=== PATIENT | male | born 1980 | race American Indian/Alaskan Native ===

== ENCOUNTER 2018-12-30 04:05 | Emergency (ER) | payer SELFPAY ==
--- NOTE | 2018-12-30 05:54 | XRay Report ---
CHEST 1 VIEW INDICATION / CLINICAL INFORMATION: Chest Pain. COMPARISON: None available. FINDINGS: SUPPORT DEVICES: None. HEART / MEDIASTINUM: No significant abnormality. LUNGS / PLEURA: No significant pulmonary or pleural abnormality. No pneumothorax. ADDITIONAL FINDINGS: No significant additional findings. IMPRESSION: 1. No acute findings. Signer Name: Maya Souza MD Signed: 12/30/2018 5:49 AM Workstation Name: [id number]
[2018-12-30 05:57] LABS: Basophils % (Auto) 0.5 % (0.0-1.8); Eosinophils # (Auto) 0.4 K/mm3 (0.0-0.4); Eosinophils % (Auto) 4.6 % (0.0-4.3); Hematocrit 46.1 % (35.5-45.6); Hemoglobin 15.4 gm/dl (11.8-15.2); Lymphocytes # (Auto) 3.5 K/mm3 (1.2-5.4); Lymphocytes % (Auto) 40.7 % (13.4-35.0); Mean Corpuscular HGB Conc 34 % (32-34); Mean Corpuscular Volume 88 fl (84-94); Monocytes % (Auto) 11.1 % (0.0-7.3); Platelet Count 240 K/mm3 (140-440); Red Blood Count 5.24 M/mm3 (3.65-5.03); Red Cell Distribution Width 13.2 % (13.2-15.2)
[2018-12-30 06:19] LABS: BUN/Creatinine Ratio 24; Blood Urea Nitrogen 19 mg/dL (9-20); Calcium 9.3 mg/dL (8.4-10.2); Hemolysis Index 26
--- NOTE | 2018-12-30 06:21 | Emergency Department Report ---
ED Chest Pain HPI - General Chief Complaint: Chest Pain Stated Complaint: CHEST PAIN Time Seen by Provider: 12/30/18 06:03 Source: patient Mode of arrival: Ambulatory Limitations: No Limitations - History of Present Illness Initial Comments: 38-year-old male presents to the emergency department with a complaint of some intermittent midsternal chest pain that has been going on for the past month. He also has some mid to left-sided back pain but does not feel that the pain actually radiates to this area. He denies any shortness of breath, fever, naus ea, lower extremity swelling, vomiting or diaphoresis. The patient is a history of [id number] diabetes. He denies any tobacco or illicit drug use. Denies any family history of early cardiac disease or events. He has not taken anything for her symptoms prior to presentation today. - Related Data Home Medications Medication Instructions Recorded Confirmed Last Taken Aspirin [Adult Aspirin] 81 mg PO DAILY 12/30/18 12/30/18 12/29/18 AtorvaSTATin [Lipitor] 20 mg PO QHS 12/30/18 12/30/18 12/29/18 Cholecalciferol Vit D3 [Vitamin D3 1,000 unit PO QDAY 12/30/18 12/30/18 12/29/18 1,000 UNIT TAB] Lisinopril [Zestril] 5 mg PO QDAY 12/30/18 12/30/18 12/29/18 Metformin HCl [metFORMIN] 1,000 mg PO DAILY 12/30/18 12/30/18 12/29/18 Vardenafil HCl [Levitra] 20 mg PO DAILY PRN 12/30/18 12/30/18 12/16/18 Allergies Allergy/AdvReac Type Severity Reaction Status Date / Time No Known Allergies Allergy Unverified 12/30/18 05:30 Heart Score - HEART Score History: Slightly suspicious EKG: Non-specific Age: < 45 Risk factors: 1-2 risk factors Troponin: < normal limit HEART Score: 2 - Critical Actions Critical Actions: 0-3 pts:0.9-1.7%risk of adverse cardiac event.Candidate for discharge ED Review of Systems ROS: Stated complaint: CHEST PAIN Other details as noted in HPI Comment: All other systems reviewed and negative Constitutional: denies: chills, fever Respiratory: denies: cough, shortness of breath Cardiovascular: chest pain. denies: palpitations, edema Gastrointestinal: denies: abdominal pain, vomiting Genitourinary: denies: dysuria, discharge Musculoskeletal: denies: back pain, arthralgia Skin: denies: rash, lesions Neurological: denies: headache, weakness ED Past Medical Hx - Past Medical History Previous Medical History?: Yes Hx Hypertension: Yes Hx Diabetes: Yes Additional medical history: high cholesterol - Surgical History Past Surgical History?: No - Social History Smoking Status: Former Smoker Substance Use Type: None - Medications Home Medications: Home Medications Medication Instructions Recorded Confirmed Last Taken Type Aspirin [Adult Aspirin] 81 mg PO DAILY 12/30/18 12/30/18 12/29/18 History AtorvaSTATin [Lipitor] 20 mg PO QHS 12/30/18 12/30/18 12/29/18 History Cholecalciferol Vit D3 [Vitamin D3 1,000 unit PO QDAY 12/30/18 12/30/18 12/29/18 History 1,000 UNIT TAB] Lisinopril [Zestril] 5 mg PO QDAY 12/30/18 12/30/18 12/29/18 History Metformin HCl [metFORMIN] 1,000 mg PO DAILY 12/30/18 12/30/18 12/29/18 History Vardenafil HCl [Levitra] 20 mg PO DAILY PRN 12/30/18 12/30/18 12/16/18 History ED Physical Exam - General Limitations: No Limitations - Other Other exam information: GENERAL: The patient is well-developed well-nourished. HENT: Normocephalic. Atraumatic. Patient has moist mucous membranes. EYES: Extraocular motions are intact. NECK: Supple. Trachea is midline. CHEST/LUNGS: Clear to auscultation. There is no respiratory distress noted. HEART/CARDIOVASCULAR: Regular. There is no tachycardia. There is no murmur. ABDOMEN: Abdomen is soft, nontender. Patient has normal bowel sounds. There is no abdominal distention. SKIN: Skin is warm and dry. NEURO: The patient is awake, alert, and oriented. The patient is cooperative. The patient has no focal neurologic deficits. Normal speech. MUSCULOSKELETAL: There is no tenderness or deformity. There is no evidence of acute injury. ED Course Vital Signs 12/30/18 12/30/18 12/30/18 04:16 06:15 06:19 Temperature 97.4 F L Pulse Rate 82 69 Respiratory 20 17 18 Rate Blood Pressure 141/85 120/74 Blood Pressure [Left] O2 Sat by Pulse 100 99 99 Oximetry 12/30/18 12/30/18 06:31 07:38 Temperature Pulse Rate 67 67 Respiratory 14 12 Rate Blood Pressure 120/74 Blood Pressure 116/69 [Left] O2 Sat by Pulse 98 99 Oximetry LACIE score - Lacie Score Age > 65: (0) No Aspirin use within the Past 7 Days: (0) No 3 or more CAD Risk Factors: (0) No 2 or more Angina events in past 24 hrs: (1) Yes Known CAD with more than 50% Stenosis: (0) No Elevated Cardiac Markers: (0) No ST Deviation Greater than 0.5mm: (0) No LACIE Score: 1 ED Medical Decision Making - Lab Data Result diagrams: 12/30/18 05:41 12/30/18 05:41 - EKG Data -: EKG Interpreted by Me EKG shows normal: sinus rhythm, axis, intervals, QRS complexes (Q waves to the inferior leads), ST-T waves (Q waves to the inferior leads) Rate: normal - EKG Data When compared to previous EKG there are: no significant change Interpretation: other (sinus rhythm, rate of 78, Q waves and T waves to the inferior leads. No ST elevation LA) - Radiology Data Radiology results: image reviewed interpreted by me: Chest x-ray does not show any acute process. There are no pleural effusions, obvious pneumonia and there is no pneumothorax. - Medical Decision Making This patient presents with some intermittent chest pain and back pain over the past month. At the time of my examination he says that he is asymptomatic. EKG showed some inferior Q waves but otherwise no signs of ST elevation LA or dysrhythmia. Chest x-ray does not show any pleural effusions, pneumonia, pneumothorax, focal consolidation, or any other acute process. His labs have been unremarkable including negative troponin and a negative d-dimer. He has a low heart and LACIE score. For all of these reasons he appears safe for discharge home at this time. His information has been sent over to [facility] who will contact him for close outpatient follow-up. The patient will return to the emergency Department with any worsening of his symptoms or any acute distress. - Differential Diagnosis LA, PE, costochondritis, pneumonia Critical Care Time: No Critical care attestation.: If time is entered above; I have spent that time in minutes in the direct care of this critically ill patient, excluding procedure time. ED Disposition Clinical Impression: Intermittent chest pain Disposition: DC- TO HOME OR SELFCARE Is pt being admited?: No Condition: Stable Instructions: Chest Pain (ED) Additional Instructions: Please follow-up with a primary care physician. I am sending your contact information to [facility] cardi[facility] who should contact you shortly for close outpatient follow-up. Return to the emergency Department with any worsening of your symptoms or any acute distress. Referrals: KRISS GRIER MD [Staff Physician] - 3-5 Days BRYAN MATOS MD [Staff Physician] - 3-[address] [facility] [Outside] - 3-5 Days [facility] [Provider Group] - 3-5 Days Time of Disposition: 07:38
[2018-12-30 07:39] VITALS: BP 116/69
== END 2018-12-30 07:53 | disposition home or self-care (01) ==
LOC: ED 04:05
DX: R07.2 Precordial pain (principal); I10 Essential (primary) hypertension; E11.9 Type 2 diabetes mellitus without complications; E78.00 Pure hypercholesterolemia, unspecified; Z87.891 Personal history of nicotine dependence; Z79.899 Other long term (current) drug therapy
CPT/HCPCS: 36415; 71045; 80048; 84484; 85025; 85379; 93005; 93010